=== PATIENT | female | born 1980 | race Caucasian/White ===

== ENCOUNTER 2024-07-04 15:21 | Outpatient (CLI) | payer OTHER, SELFPAY ==
--- NOTE | ~2024-07-04 | US_ITS ---
EXAMINATION: US pelvic complete DATE: 07/04/2024 15:41 INDICATION: Menorrhagia TECHNIQUE: Multiple transabdominal sonographic images of the pelvis were obtained. COMPARISON: None. FINDINGS: Uterus: 9.2 x 4.8 x 6.1 cm. Endometrial complex measures 12 mm. Right Ovary: 2.8 x 2.0 x 1.7 cm. Vascular flow is present. No adnexal mass Left Ovary: 3.3 x 2.7 x 3.6 cm. Vascular flow is present. 2.1 cm simple cyst. There is no free fluid in the pelvis. IMPRESSION: Normal transabdominal pelvic sonogram findings. Reviewed, dictated and finalized at location K.
== END 2024-07-04 15:22 | disposition home or self-care (01) ==
LOC: MICIMG 15:22
PROVIDERS: PCP Obstetrics & Gynecology Gynecology; Visit Provider Nurse Practitioner
DX: N92.0 Excessive and frequent menstruation with regular cycle (principal)
CPT/HCPCS: 76856